=== PATIENT | female | born 1995 | race African-American/Black ===

== ENCOUNTER 2021-11-05 11:06 | Emergency (ER) | payer SELFPAY ==
[~2021-11-05] VITALS: Ht 165.1 cm; Wt 127.0 kg
[2021-11-05] MEDS ORDERED: MAGNESIUM/ALUMINUM/SIMETHICONE 30 ML UDC PO ONE (11:30)
[2021-11-05] MEDS ORDERED: LIDOCAINE VISC 2% SOLN 15 ML UDC PO ONE (11:30)
[2021-11-05] MEDS ORDERED: FAMOTIDINE 20 MG TAB PO ONE (11:30)
[2021-11-05] MEDS ORDERED: SODIUM CHLORIDE 0.9% 1000ML 1,000 ML IV ONE (11:30)
[2021-11-05] MEDS ORDERED: BELLADONNA ALK/PHENOBARBITAL 5 ML UDC PO ONE (11:30)
[2021-11-05] MEDS ORDERED: ONDANSETRON HCL INJ 2MG/ML 2ML 2 MG/ML VIAL IV PRN ×2 (11:30→16:00)
[2021-11-05 11:43] LABS: BASOPHILS % 0.2 % (0.0-1.0); EOSINOPHILS % 0.1 % (0.0-6.0); HEMATOCRIT 37.1 % (34.2-44.1); HEMOGLOBIN 11.6 g/dL (12.0-16.0); LYMPHOCYTES # (AUTO) 1.3 (1.0-3.2); LYMPHOCYTES % 11.6 % (18.0-39.1); MEAN CORPUSCULAR HGB CONC 31.3 g/dL (31-35); MEAN CORPUSCULAR VOLUME 89.4 fL (81-99); MONOCYTES # (AUTO) 0.8 (0.2-0.8); MONOCYTES % 6.9 % (4.4-11.3); NEUTROPHILS % 80.8 % (38.7-80.0); PLATELET COUNT 331 x10e3/uL (140-360); RED BLOOD COUNT 4.15 x10e6/uL (3.6-5.1); RED CELL DISTRIBUTION WIDTH 14.5 % (11.7-14.4)
[2021-11-05 12:03] LABS: ALBUMIN 3.6 g/dL (3.5-5.0); ALBUMIN/GLOBULIN RATIO 0.6 (0.8-2.0); ANION GAP 16.1 mmol/L (8-16); CALCIUM 9.4 mg/dL (8.4-10.2); CREATININE, SERUM 0.88 mg/dL (0.57-1.11); POTASSIUM 4.1 mmol/L (3.5-5.1)
[2021-11-05 12:04] LABS: LIPASE 20 U/L (8-78)
[2021-11-05 13:22] LABS: CLARITY,URINE TURBID (CLEAR); COLOR,URINE YELLOW (YELLOW); LEUKOCYTE ESTERASE ,URINE NEGATIVE (NEGATIVE); NITRITE,URINE POSITIVE (NEGATIVE); PROTEIN,URINE DIPSTICK NEGATIVE (NEGATIVE)
[2021-11-05 13:23] LABS: KETONES,URINE 1+ (NEGATIVE); URINE UROBILINOGEN >=8 mg/dL (0.2 - 1)
[2021-11-05 13:36] LABS: BACTERIA,URINE MANY /HPF; EPITHELIAL CELLS,URINE MODERATE /LPF; RBC,URINE 0-5 /HPF (0-5)
[2021-11-05] MEDS ORDERED: FENTANYL CITRATE/PF 100MCG/2 ML INJ IV ONE (16:00)
[2021-11-05] MEDS ORDERED: PROTONIX20 MG PO (16:37)
[2021-11-05] MEDS ORDERED: ONDANSETRON ODT4 MG PO (16:37)
[2021-11-05] MEDS ORDERED: DICYCLOMINE HCL20 MG PO (16:37)
[2021-11-05 17:07] VITALS: BP 130/73
== END 2021-11-05 16:45 | disposition home or self-care (01) ==
LOC: ER 11:11
DX: R10.13 Epigastric pain (principal); E80.7 Disorder of bilirubin metabolism, unspecified; K76.0 Fatty (change of) liver, not elsewhere classified; R11.0 Nausea
CPT/HCPCS: 36415; 76705; 81001; 80053; 83690; 84702; 85025; 99284; J2405; J3010; J7030